=== PATIENT | male | born 1975 | race Caucasian/White ===

== ENCOUNTER 2018-07-09 09:14 | Emergency (ER) | payer BC ==
[2018-07-09 09:46] VITALS: BP 146/83
--- NOTE | 2018-07-09 10:10 | UC ---
Eye Complaint HPI - HPI Summary HPI Summary: Pt presents with c/o sudden onset of bilateral eye redness, and yellow/green discharge X 1 day. - History of Current Complaint Chief Complaint: UCEye Stated Complaint: EYE CONCERN Time Seen by Provider: 07/09/18 10:05 Hx Obtained From: Patient Onset/Duration: Sudden Onset, Lasting Days - 1, Still Present Timing: Constant Severity Initially: Mild Severity Currently: Moderate Pain Intensity: 0 Aggravating Factor(s): Nothing Associated Signs And Symptoms: Positive: Drainage (Purulent) - Risk Factors Penetrating Injury Risk Factor: Negative Acute Glaucoma Risk Factors: Negative Optic Artery Occlusion Risk Factors: Negative - Allergies/Home Medications Allergies/Adverse Reactions: Allergies Allergy/AdvReac Type Severity Reaction Status Date / Time No Known Allergies Allergy Verified 07/09/18 09:35 Home Medications: Home Medications Dm/PE/Acetaminophen/Doxylamine [[facility] Plus Day-Night Cp] 1 each PO PRN [History] PMH/Surg Hx/FS Hx/Imm Hx Previously Healthy: Yes - Surgical History Surgical History: Yes Surgery Procedure, Year, and Place: ENDOSCOPY. EXCISION SKIN "FATTY TUMORS" - Family History Known Family History: Positive: Cardiac Disease - Social History Occupation: Employed Full-time Alcohol Use: Occasionally Substance Use Type: None Smoking Status (MU): Current Some Day Smoker Type: Cigarettes Have You Smoked in the Last Year: Yes Review of Systems All Other Systems Reviewed And Are Negative: Yes Constitutional: Positive: Negative Skin: Positive: Negative Eyes: Positive: Drainage, Eye Redness ENT: Positive: Negative Respiratory: Positive: Negative Cardiovascular: Positive: Negative Gastrointestinal: Positive: Negative Genitourinary: Positive: Negative Motor: Positive: Negative Neurovascular: Positive: Negative Musculoskeletal: Positive: Negative Neurological: Positive: Negative Psychological: Positive: Negative Is Patient Immunocompromised?: No Physical Exam Triage Information Reviewed: Yes Appearance: Well-Appearing Vital Signs: Initial Vital Signs Temp 98.1 F 07/09/18 09:37 Pulse 73 07/09/18 09:37 Resp 17 07/09/18 09:37 BP 146/83 07/09/18 09:37 Pulse Ox 97 07/09/18 09:37 Vital Signs Reviewed: Yes Eyes: Positive: Conjunctiva Inflamed, Discharge - yellow ENT Exam: Normal Dental Exam: Normal Respiratory: Positive: No respiratory distress Musculoskeletal Exam: Normal Neurological Exam: Normal Psychological Exam: Normal Skin Exam: Normal Eye Complaint Course/Dx - Differential Dx/Diagnosis Differential Diagnosis/HQI/PQRI: Conjunctivitis Provider Diagnosis: Conjunctivitis, acute, bilateral Discharge - Sign-Out/Discharge Documenting (check all that apply): Patient Departure All imaging exams completed and their final reports reviewed: No Studies - Discharge Plan Condition: Stable Disposition: HOME Prescriptions: Ofloxacin 0.3% (Eye Drop) [Ocuflox OPTH 0.3% (Eye Drop)] 3 drop BOTH EYES Q8H 7 Days #1 btl Patient Education Materials: Conjunctivitis (ED) Referrals: Lula Miller NP [Primary Care Provider] - If Needed - Billing Disposition and Condition Condition: STABLE Disposition: Home
== END 2018-07-09 10:18 | disposition home or self-care (01) ==
LOC: UCCORT 09:14
DX: H10.33 Unspecified acute conjunctivitis, bilateral (principal); F17.210 Nicotine dependence, cigarettes, uncomplicated
CPT/HCPCS: 99212; G0463